=== PATIENT | female | born 1930 | race Caucasian/White ===

== ENCOUNTER 2017-08-06 02:20 | Inpatient (IN) | payer OTHER, MEDICARE ==
[2017-08-06] VITALS (12 sets, daily range): BP systolic 116–137; BP diastolic 62–82; PULSE 74–130; RESP 15–26; TEMP 97.5–98.1; O2SAT 95–99
--- NOTE | 2017-08-06 03:23 | HHI.HP ---
[facility] Service Critical Care Medicine Primary Care Physician Unknown Admission Diagnosis Diagnosis: (1) Fall Diagnosis: Principal (2) Intraparenchymal hemorrhage of brain Diagnosis: Principal (3) Eyebrow laceration Diagnosis: Secondary Travel History International Travel<30 Days: No Contact w/Intl Traveler <30 Da: No Traveled to Known Affected Are: No History of Present Illness 87-year-old female who states that she has no significant past medical history was transferred from [facility] due to intracerebral hemorrhage. She states that she slipped and landed with her face on the floor. She denies loss of consciousness. She denies reported seizure activity. She denies headache, nausea, vomiting. She is not on any anticoagulants or antiplatelets. Denies h/o HTN. She has right periorbital ecchymosis and a laceration above her right eye and has undergone suture repair at [facility]. CT brain at [facility] 08/05 17: 56 demonstrates intracerebral hemorrhage at the high right parietal region, near midline. There is no intraventricular hemorrhage. She had a CT C-spine that was negative. 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 Dr. Manning discussed with Dr. Ambriz who recommended repeat CT brain this morning. Review of Systems ROS Limitations: Clinical Condition Constitutional: DENIES: Fever, Chills Neurologic: DENIES: Headache Past Family Social History Allergies: Coded Allergies: No Known Allergies (Unverified , 08/06/17) Past Medical History Patient denies significant past medical history. Past Surgical History Patient denies prior surgery Reported Medications States she is not on any medication regularly Family History Mother at age 23 from "hemorrhage of the heart" Father lived a long life. Social History Her grandmother raised her. She states her daughter lives in the [facility] but stays with her during weekdays. Lifetime non-smoker Drinks 1-2 vodka and water beverages per day No illicit drug use She has a dog Physical Exam Physical Exam Pulse 112, sinus tach on the monitor blood pressure 116/65 sats 94-95% on room air GENERAL: Well-nourished, well-developed patient who is alert and interactive. Asking when she will be able to go home. HEAD: Normocephalic. EYES/SKIN: Right periorbital ecchymosis. Laceration overlying right eyebrow which has undergone suture repair [place].Pupils equal and round, 3 mm and reactive bilaterally. EOM are full with no evidence of entrapment. No scleral icterus. No injection or drainage. ENT: No nasal bleeding or discharge. Mucous membranes pink and moist. No septal hematoma. NECK: Trachea midline. No JVD. CARDIOVASCULAR: Tachycardic, regular, sinus tach on the monitor.. No murmurs rubs or gallops. RESPIRATORY: No accessory muscle use. Clear to auscultation. Breath sounds equal bilaterally. On room air GASTROINTESTINAL: Abdomen soft, non-tender, nondistended. Bowel sounds present. MUSCULOSKELETAL: Extremities without clubbing, cyanosis, or edema. There is a bony deformity of her left shoulder. She has normal range of motion there does not appear to have any point tenderness. She is uncertain of the chronicity of this but inquires whether it may have been related to the fall. NEUROLOGICAL: Awake and alert. Oriented to self, not to year or place. President "Obama". No obvious cranial nerve deficits. No facial droop. Normal tongue protrusion. Sensation intact. 5 out of 5 strength in all extremities. Normal speech. Laboratory Laboratory Tests Test 08/06/17 02:45 Caprini VTE Risk Assessment Caprini VTE Risk Assessment: Mod/High Risk (score >= 2) VTE Pharm Contraindication: Intracranial lesions (Intracerebral hemorrhage) Caprini Risk Assessment Model Point Value = 1 Point Value = 2 Point Value = 3 Point Value = 5 Age 41-60 Minor surgery BMI > 25 kg/m2 Swollen legs Varicose veins or History of unexplained or recurrent spontaneous Oral contraceptives or hormone replacement Sepsis (< 1 month) Serious lung disease, including pneumonia (< 1 month) Abnormal pulmonary function Acute myocardial infarction Congestive heart failure (< 1 month) History of inflammatory bowel disease Medical patient at bed rest Age 61-74 Arthroscopic surgery Major open surgery (> 45 min) Laparoscopic surgery (> 45 min) Malignancy Confined to bed (> 72 hours) Immobilizing plaster cast Central venous access Age >= 75 History of VTE Family history of VTE Factor V Leiden Prothrombin [id number] Lupus anticoagulant Anticardiolipin antibodies Elevated serum homocysteine Heparin-induced thrombocytopenia Other congenital or acquired thrombophilia Stroke (< 1 month) Elective arthroplasty Hip, pelvis, or leg fracture Acute spinal cord injury (< 1 month) Prophylaxis Regimen Total Risk Factor Score Risk Level Prophylaxis Regimen 0-1 Low Early ambulation 2 Moderate Order ONE of the following: *Sequential Compression Device (SCD) *Heparin 5000 units SQ BID 3-4 Higher Order ONE of the following medications: *Heparin 5000 units SQ TID *Enoxaparin/Lovenox 40 mg SQ daily (WT < 150 kg, CrCl > 30 mL/min) *Enoxaparin/Lovenox 30 mg SQ daily (WT < 150 kg, CrCl > 10-29 mL/min) *Enoxaparin/Lovenox 30 mg SQ BID (WT < 150 kg, CrCl > 30 mL/min) AND/OR *Sequential Compression Device (SCD) 5 or more Highest Order ONE of the following medications: *Heparin 5000 units SQ TID (Preferred with Epidurals) *Enoxaparin/Lovenox 40 mg SQ daily (WT < 150 kg, CrCl > 30 mL/min) *Enoxaparin/Lovenox 30 mg SQ daily (WT < 150 kg, CrCl > 10-29 mL/min) *Enoxaparin/Lovenox 30 mg SQ BID (WT < 150 kg, CrCl > 30 mL/min) AND *Sequential Compression Device (SCD) Assessment and Plan Problem List: (1) Fall ICD Code: W19.XXXA - Unspecified fall, initial encounter (2) Intraparenchymal hemorrhage of brain ICD Code: I61.9 - Nontraumatic intracerebral hemorrhage, unspecified (3) Eyebrow laceration ICD Code: S01.119A - Laceration without foreign body of unspecified eyelid and periocular area, initial encounter (4) Deformity of left shoulder joint ICD Code: M21.922 - Unspecified acquired deformity of left upper arm Status: Chronic Assessment and Plan NEURO: Fall Parietal intraparenchymal hemorrhage Neuro[facility] in [facility] Monitor vital signs, antihypertensives to maintain systolic blood pressure less than 160. Avoid hypoxemia, hypotension, hyponatremia. Repeat CT brain this morning CT Cspine outside hospital negative. Consult neurosurgery Tylenol as needed for headache Laceration R eyebrow -status post suture repair 08/05 at outside hospital. Sutures should be removed in 3-5 days per [facility]: L shoulder deformity May be chronic but patient unsure. No imaging of shoulder appears hospital. Will obtain x-rays left shoulder. RESP: Incentive spirometry every hour awake CV: Monitor hemodynamics. Hydralazine/labetalol as needed for systolic blood pressure greater than 160. GI: N.p.o. currently. Bedside swallow evaluation and advance diet as appropriate FEN/RENAL: Voiding ID: Afebrile. HEME: Check CBC ENDO: Check BMP PROPH: SCDs for DVT prophylaxis. Avoid pharmacologic DVT prophylaxis due to intracerebral hemorrhage. Protonix for stress ulcer prophylaxis ACCESS: Peripheral IV providing adequate access at this time Patient is confused enough now that she is not able to answer questions regarding Code status. I attempted to call the next of kin that is listed on paperwork from Victorina Forman ([facility]). [phone]. There was no answer. Left message. FULL CODE. Level 3 H&P. Problem Qualifiers (1) Eyebrow laceration: Qiana Deshpande MD August 06, 2017 03:23
[2017-08-06] MEDS ORDERED: LACTULOSE SYRUP 20 GM/30 ML CUP PO PRN (05:30)
[2017-08-06] MEDS ORDERED: SENNOSIDES 8.6 MG TAB PO PRN (05:30)
[2017-08-06] MEDS ORDERED: BISACODYL 10 MG SUPP RECTAL PRN (05:30)
[2017-08-06] MEDS ORDERED: ONDANSETRON HCL 4 MG/2 ML VIAL IV PUSH PRN (05:30)
[2017-08-06] MEDS ORDERED: RESP: ALBUTEROL 2.5 MG/3 ML NEB (PRN) INH (05:30)
[2017-08-06] MEDS ORDERED: NURSING INFORMATION XX SCH (05:30)
[2017-08-06] MEDS ORDERED: CHLORHEXIDINE GLUCONATE 2 % 1 PACK (2 CLOTHS) TOP PRN (05:30)
[2017-08-06] MEDS ORDERED: SODIUM CHLORIDE 0.9% FLUSH 10 ML FLUSH IV FLUSH PRN (05:30)
[2017-08-06] MEDS ORDERED: MAGNESIUM HYDROXIDE SUSP 30 ML CUP PO PRN (05:30)
[2017-08-06] MEDS ORDERED: ACETAMINOPHEN 325 MG TAB PO PRN (05:30)
[2017-08-06] MEDS ORDERED: POTASSIUM PHOSPHATE MONOBASIC 500 MG TAB PO/TUBE PRN (05:45)
[2017-08-06] MEDS ORDERED: MAGNESIUM SULFATE INJ 2 GM in SODIUM CHLORIDE 0.9% INJ 96 ML IV PRN (05:45)
[2017-08-06] MEDS ORDERED: POTASSIUM CHLOR 40 MEQ PREMIX 100 ML IV PRN ×2 (05:45)
[2017-08-06] MEDS ORDERED: POTASSIUM PHOSPHATE MONOBASIC 500 MG TAB PO PRN (05:45)
[2017-08-06] MEDS ORDERED: POTASSIUM CHLORIDE 25 MEQ EFFERVESCENT TAB PO PRN (05:45)
[2017-08-06] MEDS ORDERED: POTASSIUM CHLOR 20 MEQ PREMIX 100 ML IV PRN ×2 (05:45)
[2017-08-06] MEDS ORDERED: MAGNESIUM OXIDE 400 MG TAB PO PRN (05:45)
[2017-08-06] MEDS ORDERED: MAGNESIUM SULFATE INJ 4 GM in SODIUM CHLORIDE 0.9% INJ 92 ML IV PRN (05:45)
[2017-08-06] MEDS ORDERED: POTASSIUM PHOSPHATE INJ 30 MMOL in SODIUM CHLOR 0.9% 250 ML INJ 250 ML IV PRN (05:45)
[2017-08-06] MEDS ORDERED: SODIUM PHOSPHATE INJ 30 MMOL in SODIUM CHLOR 0.9% 250 ML INJ 240 ML IV PRN (05:45)
--- NOTE | 2017-08-06 06:49 | RADRPT ---
EXAM DATE/TIME: 08/06/2017 06:27 [facility] COMPARISON: No previous studies available for comparison. INDICATIONS : Shortness of breath. MEDICAL HISTORY : None. SURGICAL HISTORY : None. ENCOUNTER: Initial ACUITY: 1 day PAIN SCORE: 0/10 LOCATION: Bilateral chest FINDINGS: There is a skinfold overlying the right upper chest. I do not believe there is a pneumothorax. Could be confirmed with a fully upright film in expiration. Lungs are grossly clear. No significant effusio n suspected. Cardiac contours are satisfactory for technique. CONCLUSION: No acute disease Alvin Ames MD on August 06, 2017 at 6:45 Board Certified Radiologist. This report was verified electronically.
[2017-08-06] MEDS: SODIUM CHLOR 0.9% 1000 ML INJ 1,000 ML IV SCH ×2 (07:30→19:47)
--- NOTE | 2017-08-06 08:16 | RADRPT ---
EXAM DATE/TIME: 08/06/2017 07:47 [facility] COMPARISON: No previous studies available for comparison. INDICATIONS : Trauma, fall yesterday. RADIATION DOSE: 35.11 CTDIvol (mGy) MEDICAL HISTORY : None SURGICAL HISTORY : None. ENCOUNTER: Initial ACUITY: 1 day PAIN SCALE: 3/10 LOCATION: Bilateral head TECHNIQUE: Multiple contiguous axial images were obtained of the head. Using automated exposure control and adj ustment of the mA and/or kV according to patient size, radiation dose was kept as low as reasonably a chievable to obtain optimal diagnostic quality images. DICOM format image data is available electro nically for review and comparison. FINDINGS: CEREBRUM: There is a generalized atrophy. Ventricles are normal in size. There is mild periventricular white ma tter low attenuation. A small amount of high density blood products a l the sulci in the right fronta l parietal high convexity adjacent to the falx cerebri. There is also a small amount of blood product s in the anterior right sylvian fissure and anterior right temporal lobe. No midline shift, mass les ion, or acute infarction. No extra-axial fluid collections are seen. POSTERIOR FOSSA: The cerebellum and brainstem demonstrate no acute finding. The 4th ventricle is midline. The cerebe llopontine angle is unremarkable. EXTRACRANIAL: Visualized sinuses are clear. SKULL: The calvaria is intact. No evidence of skull fracture. CONCLUSION: 1. There are acute blood products layering along the sulci in the medial right frontal and parietal l obes in the high convexity. Also, a small amount of blood products are present at the anterior right sylvian fissure and anterior right temporal lobe. No midline shift or herniation is present. 2. Chronic findings include generalized atrophy and mild chronic periventricular white matter change. Alvin Parker MD on August 06, 2017 at 8:10 Board Certified Radiologist. This report was verified electronically.
--- NOTE | 2017-08-06 08:24 | RADRPT ---
EXAM DATE/TIME: 08/06/2017 07:58 [facility] COMPARISON: No previous studies available for comparison. INDICATIONS : Left Shoulder pain MEDICAL HISTORY : None. SURGICAL HISTORY : None. ENCOUNTER: Initial ACUITY: 1 day PAIN SCORE: 7/10 LOCATION: Left shoulder FINDINGS: 4 views of the left shoulder demonstrate no fracture or dislocation. 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 Mineralization is present in the region of the distal rotator cuff tendons adjacent to the greater tuberosity. No soft tissue abnormality or radiopaque foreign ketty dy is identified. Visualized left chest demonstrates no acute finding. There is calcification of the aorta. CONCLUSION: 1. No acute left shoulder abnormality is identified. 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 2. Mineralization in the region of the distal rotator cuff tendon suggests calcific tendinosis. Alvin Parker MD on August 06, 2017 at 8:19 Board Certified Radiologist. This report was verified electronically.
[2017-08-06] MEDS: SODIUM CHLORIDE 0.9% FLUSH 10 ML FLUSH IV FLUSH SCH ×2 (09:00→21:00)
[2017-08-06] MEDS: DOCUSATE SODIUM 50 MG/SENNA 8.6 MG TAB PO SCH ×2 (09:22→21:00)
[2017-08-06] MEDS: PANTOPRAZOLE SOD 40 MG DELAYED RELEASE TAB PO SCH (09:22)
--- NOTE | 2017-08-06 11:28 | PD.CONS ---
History of Present Illness Service Neurosurgery Consult Requested By Certified Surgical Technician Reason for Consult Traumatic brain injury Primary Care Physician Unknown Diagnoses: History of Present Illness 87-year-old female who was transferred from [facility] for cerebral contusions after a trip and fall at home. No loss of consciousness noted and she denies feeling lightheaded or dizzy either prior to or after the fall. She relates no complaints and denies headache, nausea vomiting, neck or back pain, any numbness or paresthesias in the upper lower extremities. Daughter is here with her and relates that she has a history of dementia and is otherwise healthy and other than some vitamins does not take any medication. She also has glaucoma with poor vision. The fall occurred yesterday and she was transferred to [facility] fax this morning. CT scan of the head was repeated and reveals right posterior frontoparietal parasagittal contusions along with the right temporal polar area contusion near the sylvian fissure laterally. There is generalized cerebral atrophy with no mass-effect or midline shift noted. Review of Systems Constitutional: DENIES: Diaphoretic episodes, Fatigue, Fever, Weight gain, Weight loss, Chills, Dizziness, Change in appetite, Night Sweats Endocrine: DENIES: Abnorml menstrual pattern, Heat/cold intolerance, Polydipsia , Polyuria, Polyphagia Eyes: COMPLAINS OF: Vision loss, DENIES: Blurred vision, Diplopia, Eye inflammation, Eye pain, Photosensitivity, Double Vision Ears, nose, mouth, throat: DENIES: Tinnitus, Hearing loss, Vertigo, Nasal discharge, Oral lesions, Throat pain, Hoarseness, Ear Pain, Running Nose, Epistaxis, Sinus Pain, Toothache, Odynophagia Respiratory: DENIES: Apneas, Cough, Snoring, Wheezing, Hemoptysis, Sputum production, Shortness of breath Cardiovascular: DENIES: Chest pain, Palpitations, Syncope, Dyspnea on Exertion , PND, Lower Extremity Edema, Orthopnea, Claudication Gastrointestinal: DENIES: Abdominal pain, Black stools, Bloody stools, Constipation, Diarrhea, Nausea, Vomiting, Difficulty Swallowing, Anorexia Genitourinary: DENIES: Abnormal vaginal bleeding, Dysmenorrhea, Dyspareunia, Sexual dysfunction, Urinary frequency, Urinary incontinence, Urgency, Hematuria , Dysuria, Nocturia, Vaginal discharge Musculoskeletal: DENIES: Joint pain, Muscle aches, Stiffness, Joint Swelling, Back pain, Neck pain Integumentary: DENIES: Abnormal pigmentation, Pruritus, Rash, Nail changes, Breast masses, Breast skin changes, Nipple discharge Hematologic/lymphatic: COMPLAINS OF: Bruising, DENIES: Lymphadenopathy Immunologic/allergic: DENIES: Eczema, Urticaria Neurologic: DENIES: Abnormal gait, Headache, Localized weakness, Paresthesias, Seizures, Speech Problems, Tremor, Poor Balance Psychiatric: DENIES: Anxiety, Confusion, Mood changes, Depression, Hallucinations, Agitation, Suicidal Ideation, Homicidal Ideation, Delusions Except as stated in HPI: all other systems reviewed are Neg Past Family Social History Allergies: Coded Allergies: No Known Allergies (Unverified , 08/06/17) Past Medical History Dementia and glaucoma with poor vision Reported Medications Vitamin E Active Ordered Medications Current Medications Medications (Trade) Dose Ordered Sig/Christel Route PRN Reason Start Time Stop Time Status Last Admin Dose Admin Sodium Chloride 1,000 ml @ 70 mls/hr [id number] IV 08/06/17 05:29 08/06/17 07:30 Sodium Chloride (NS Flush) 2 ml UNSCH PRN IV FLUSH FLUSH AFTER USING IV ACCESS 08/06/17 05:30 Sodium Chloride (NS Flush) 2 ml BID IV FLUSH 08/06/17 09:00 Acetaminophen (Tylenol) 650 mg Q6H PRN PO PAIN 1-10 AND/OR FEVER >101F 08/06/17 05:30 Pantoprazole Sodium (Protonix) 40 mg DAILY PO 08/06/17 09:00 08/06/17 09:22 Ondansetron HCl (Zofran Inj) 4 mg Q6H PRN IV PUSH NAUSEA OR VOMITING 08/06/17 05:30 Albuterol Sulfate (Albuterol Neb) 2.5 mg Q2HR NEB PRN INH SOB/WHEEZING 08/06/17 05:30 Miscellaneous Information ([facility] Nursing Information) 1 [id number] XX 08/06/17 05:30 08/06/17 07:30 Chlorhexidine Gluconate (Chlorhexidine 2% Cloth) 3 pack Taper DAILY@04 TOP 08/07/17 04:00 08/03/18 03:59 Chlorhexidine Gluconate (Chlorhexidine 2% Cloth) 3 pack UNSCH PRN TOP HYGIENIC CARE 08/06/17 05:30 Senna/Docusate Sodium (Julita-Colace) 1 tab BID PO 08/06/17 09:00 08/06/17 09:22 Magnesium Hydroxide (Milk Of Magnesia Liq) 30 ml Q12H PRN PO Mild constipation 08/06/17 05:30 Sennosides (Senokot) 17.2 mg Q12H PRN PO Moderate constipation 08/06/17 05:30 Bisacodyl (Dulcolax Supp) 10 mg DAILY PRN RECTAL SEVERE CONSITIPATION 08/06/17 05:30 Lactulose (Lactulose Liq) 30 ml DAILY PRN PO SEVERE CONSITIPATION 08/06/17 05:30 Potassium Chloride 100 ml @ 50 mls/hr Q2H PRN IV For Potassium 2.8 - 3.2 mEq/L 08/06/17 05:45 Potassium Chloride 100 ml @ 50 mls/hr Q2H PRN IV For Potassium 2.8 - 3.2 mEq/L 08/06/17 05:45 Potassium Bicarb/ Potassium Chloride (K-Lyte Cl Eff) 50 meq UNSCH PRN PO For Potassium 3.3 - 3.5 mEq/L 08/06/17 05:45 Potassium Chloride 100 ml @ 25 mls/hr UNSCH PRN IV For Potassium 3.3 - 3.5 mEq/L 08/06/17 05:45 Potassium Chloride 100 ml @ 50 mls/hr Q2H PRN IV For Potassium 3.3 - 3.5 mEq/L 08/06/17 05:45 Magnesium Sulfate 4 gm/Sodium Chloride 100 ml @ 50 mls/hr UNSCH PRN IV For Magnesium 0.9 - 1.1 mg/dL 08/06/17 05:45 Magnesium Oxide (Mag-Ox) 800 mg UNSCH PRN PO For Magnesium 1.2 - 1.6 mg/dL 08/06/17 05:45 Magnesium Sulfate 2 gm/Sodium Chloride 100 ml @ 50 mls/hr UNSCH PRN IV For Magnesium 1.2 - 1.6 mg/dL 08/06/17 05:45 Potassium Phosphate (K-Phos) 2,000 mg Q4H PRN PO For Phosphorus < 2.5 mg/dL 08/06/17 05:45 Sodium Phosphate 30 mmol/Sodium Chloride 250 ml @ 42 mls/hr UNSCH PRN IV For Phosphorus < 2.5 mg/dL 08/06/17 05:45 Potassium Phosphate (K-Phos) 2,000 mg UNSCH PRN PO/TUBE SEE LABEL COMMENTS 08/06/17 05:45 Potassium Phosphate 30 mmol/ Sodium Chloride 260 ml @ 42 mls/hr UNSCH PRN IV SEE LABEL COMMENTS 08/06/17 05:45 Family History Unremarkable Social History She resides at home with her daughter. She used to drink heavily although currently has cut back to couple glasses of wine a day. Former smoker. Physical Exam Vital Signs Vital Signs Date Time Temp Pulse Resp B/P (MAP) Pulse Ox O2 Delivery O2 Flow Rate FiO2 08/06/17 10:00 100 08/06/17 08:00 110 08/06/17 08:00 98.1 110 25 133/63 (86) 98 08/06/17 07:00 108 08/06/17 07:00 91 Room Air 08/06/17 06:00 97.6 118 26 119/82 (94) 98 08/06/17 06:00 118 08/06/17 04:00 116 08/06/17 04:00 97.6 74 15 116/65 (82) 99 Physical Exam GENERAL: This is a well-nourished, well-developed elderly patient, in no apparent distress. SKIN: No rashes. Cool and dry. HEAD: Right eyebrow laceration which has been sutured. The orbital ecchymosis along with the facial trauma and ecchymosis. EYES: Pupils equal round and reactive. Extraocular motions intact. No scleral icterus. No injection or drainage. ENT: Nose without bleeding, purulent drainage or septal hematoma. Throat without erythema, tonsillar hypertrophy or exudate. Uvula midline. Airway patent. NECK: Trachea midline. No JVD or lymphadenopathy. Supple, nontender, no meningeal signs. CARDIOVASCULAR: Regular rate and rhythm without murmurs, gallops, or rubs. RESPIRATORY: Clear to auscultation. Breath sounds equal bilaterally. No wheezes , rales, or rhonchi. GASTROINTESTINAL: Abdomen soft, non-tender, nondistended. No hepato-splenomegaly , or palpable masses. No guarding. MUSCULOSKELETAL: Extremities without clubbing, cyanosis, or edema. No joint tenderness, effusion, or edema noted. No calf tenderness. Negative Homans sign bilaterally. NEUROLOGICAL: Awake and alert although pleasantly confused. Cranial nerves II through XII intact. Motor and sensory grossly within normal limits. Normal speech. Laboratory Laboratory Tests Test 08/06/17 02:45 Nasal Screen MRSA (PCR) MRSA NOT DETECTED Imaging Last Impressions Head CT 08/06/17 0500 Signed Impressions: Service Date/Time: Sunday, August 06, 2017 07:47 - CONCLUSION: 1. There are acute blood products layering along the sulci in the medial right frontal and parietal lobes in the high convexity. Also, a small amount of blood products are present at the anterior right sylvian fissure and anterior right temporal lobe. No midline shift or herniation is present. 2. Chronic findings include generalized atrophy and mild chronic periventricular white matter change. Alvin Parker MD Shoulder X-Ray 08/06/17 0000 Signed Impressions: Service Date/Time: Sunday, August 06, 2017 07:58 - CONCLUSION: 1. No acute left shoulder abnormality is identified. 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 2. Mineralization in the region of the distal rotator cuff tendon suggests calcific tendinosis. Alvin Parker MD Chest X-Ray 08/06/17 0000 Signed Impressions: Service Date/Time: Sunday, August 06, 2017 06:27 - CONCLUSION: No acute disease Alvin Ames MD Assessment and Plan Assessment and Plan 87-year-old female with a medial right posterior frontal parietal lobe contusions along with the temporal polar area contusion which is stable on follow-up imaging studies consistent with a traumatic injury after the fall. She has a history of dementia which is at baseline according to her daughter. Continue with observation and increase activity status and diet as tolerated. Recommend mechanical DVT prophylaxis. If her clinical condition remains stable over the next 48 hours then she likely could be discharged. Discussed with the daughter and questions answered. William Ambriz MD August 06, 2017 11:28
[2017-08-06 11:41] LABS: HEMATOCRIT 32.5 % (35.0-46.0); HEMOGLOBIN 10.9 GM/DL (11.6-15.3); MEAN CELL VOLUME 99.7 FL (80.0-100.0); MEAN CORPUSCULAR HEMOGLOBIN 33.5 PG (27.0-34.0); MEAN CORPUSCULAR HGB CONC 33.6 % (32.0-36.0); MEAN PLATELET VOLUME 7.4 FL (7.0-11.0); PLATELET COUNT 194 TH/MM3 (150-450); RED BLOOD COUNT 3.26 MIL/MM3 (4.00-5.30); RED CELL DISTRIBUTION WIDTH 15.1 % (11.6-17.2); WHITE BLOOD COUNT 5.1 TH/MM3 (4.0-11.0)
[2017-08-06 11:57] LABS: BICARBONATE 16.2 MEQ/L (21.0-32.0); CALCIUM 8.8 MG/DL (8.5-10.1); CREATININE 1.27 MG/DL (0.50-1.00); PHOSPHORUS 4.4 MG/DL (2.5-4.9)
--- NOTE | 2017-08-06 13:04 | EKG ---
Date Performed: 08/06/2017 Time Performed: 10:12:49 PTAGE: 87 years EKG: ATRIAL FLUTTER/TACHYCARDIA WITH RAPID VENTRICULAR RESPONSE LOW QRS VOLTAGE IN PRECORDIAL LE ADS INFERIOR MYOCARDIAL INFARCTION , PROBABLY OLD ABNORMAL ECG NO PREVIOUS TRACING Sinus tachycardia is not excluded. Unusual P-wave morphology does spe ak more towards an atrial dysrhythmia. DOCTOR: Duarte Chacon Interpretating Date/Time 08/06/2017 13:02:38
[2017-08-06] MEDS: LORazepam 2 MG/ML VIAL IV PUSH PRN ×2 (16:55→21:32)
[2017-08-06] MEDS: MULTIVITAMIN INJ 10 ML, THIAMINE INJ 100 MG, FOLIC ACID INJ 1 MG in DEXT 5%-NACL 0.9% 5... IV SCH (17:20)
[2017-08-07] VITALS (11 sets, daily range): BP systolic 128–145; BP diastolic 63–96; PULSE 69–122; RESP 15–22; TEMP 97.5–98.6; O2SAT 94–100
[2017-08-07] MEDS: CHLORHEXIDINE GLUCONATE 2 % 1 PACK (2 CLOTHS) TOP SCH (04:00)
[2017-08-07 06:09] LABS: AUTOMATED NEUTROPHIL # 3.1 TH/MM3 (1.8-7.7); BASOPHIL % 0.7 % (0.0-2.0); EOSINOPHIL # 0.5 TH/MM3 (0-0.4); EOSINOPHIL % 9.6 % (0.0-4.0); HEMATOCRIT 29.7 % (35.0-46.0); LYMPH % 20.4 % (9.0-44.0); LYMPHOCYTE # 1.1 TH/MM3 (1.0-4.8); MEAN CELL VOLUME 98.8 FL (80.0-100.0); MEAN CORPUSCULAR HEMOGLOBIN 33.4 PG (27.0-34.0); MEAN CORPUSCULAR HGB CONC 33.8 % (32.0-36.0); MEAN PLATELET VOLUME 7.4 FL (7.0-11.0); MONO % 12.2 % (0.0-8.0); MONOCYTE # 0.7 TH/MM3 (0-0.9); NEUT % 57.1 % (16.0-70.0); PLATELET COUNT 217 TH/MM3 (150-450); RED CELL DISTRIBUTION WIDTH 15.4 % (11.6-17.2); WHITE BLOOD COUNT 5.5 TH/MM3 (4.0-11.0)
[2017-08-07 06:28] LABS: BICARBONATE 21.5 MEQ/L (21.0-32.0); CALCIUM 8.2 MG/DL (8.5-10.1); CREATININE 1.15 MG/DL (0.50-1.00)
[2017-08-07] MEDS: DOCUSATE SODIUM 50 MG/SENNA 8.6 MG TAB PO SCH ×2 (09:53→23:10)
[2017-08-07] MEDS: SODIUM CHLORIDE 0.9% FLUSH 10 ML FLUSH IV FLUSH SCH ×2 (09:53→23:10)
[2017-08-07] MEDS: PANTOPRAZOLE SOD 40 MG DELAYED RELEASE TAB PO SCH (09:53)
[2017-08-07] MEDS: SODIUM CHLOR 0.9% 1000 ML INJ 1,000 ML IV SCH (10:05)
--- NOTE | 2017-08-07 10:39 | HHI.NSPN ---
(Chuck Giordano) History Chief Complaint: No complains. S/p fall with cerebral contusions. (Chuck Giordano) Interval History 87-year-old female who was transferred from [facility] for cerebral contusions after a trip and fall at home. No loss of consciousness noted and she denies feeling lightheaded or dizzy either prior to or after the fall. She relates no complaints and denies headache, nausea vomiting, neck or back pain, any numbness or paresthesias in the upper lower extremities. Daughter is here with her and relates that she has a history of dementia and is otherwise healthy and other than some vitamins does not take any medication. She also has glaucoma with poor vision. The fall occurred yesterday and she was [facility] fax this morning. CT scan of the head was repeated and reveals right posterior frontoparietal parasagittal contusions along with the right temporal polar area contusion near the sylvian fissure laterally. There is generalized cerebral atrophy with no mass-effect or midline shift noted. 08/07/17: Pt awake and alert. No headache, nausea, or vomiting. Follows commands well. speech clear and appropriate. (Chuck Giordano) Review of Systems General: Negative for: fever, chills, insomnia Respiratory: Negative for: shortness of breath, cough, sputum Cardiovascular: Negative for: chest pain Gastrointestinal: Negative for: nausea, vomitting, diarrhea, constipation ( Chuck Giordano) Exam Results Vital Signs Date Time Temp Pulse Resp B/P (MAP) Pulse Ox O2 Delivery O2 Flow Rate FiO2 08/07/17 07:00 97 Room Air 08/07/17 06:00 72 08/07/17 04:00 98.1 15 133/63 (86) 08/06/17 20:15 3.00 (Chuck Giordano) Physical Examination General: Pt awakens to voice. Eyes: Pupils equal. Sclera anicteric. Resp: CTA bilaterally. Heart: Mild tachycardia, no murmurs. Abd: Soft positive bs. Skin: She has ecchymosis right chin and right periorbital area with a sutured laceration above right eyebrow. Muscle: Moves all 4 extremities with good strength. Neuro: Pt awake and alert. Pupils equal. Face symmetric. Follows commands well. (Chuck Giordano) Lab, Micro, Other Results Last Impressions Head CT 08/06/17 0500 Signed Impressions: Service Date/Time: Sunday, August 06, 2017 07:47 - CONCLUSION: 1. There are acute blood products layering along the sulci in the medial right frontal and parietal lobes in the high convexity. Also, a small amount of blood products are present at the anterior right sylvian fissure and anterior right temporal lobe. No midline shift or herniation is present. 2. Chronic findings include generalized atrophy and mild chronic periventricular white matter change. Alvin Parker MD Shoulder X-Ray 08/06/17 0000 Signed Impressions: Service Date/Time: Sunday, August 06, 2017 07:58 - CONCLUSION: 1. No acute left shoulder abnormality is identified. 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 2. Mineralization in the region of the distal rotator cuff tendon suggests calcific tendinosis. Alvin Parker MD Chest X-Ray 08/06/17 0000 Signed Impressions: Service Date/Time: Sunday, August 06, 2017 06:27 - CONCLUSION: No acute disease Alvin Ames MD Laboratory Tests Test 08/06/17 11:16 08/07/17 04:22 White Blood Count 5.1 TH/MM3 5.5 TH/MM3 Red Blood Count 3.26 MIL/MM3 3.00 MIL/MM3 Hemoglobin 10.9 GM/DL 10.0 GM/DL Hematocrit 32.5 % 29.7 % Mean Corpuscular Volume 99.7 FL 98.8 FL Mean Corpuscular Hemoglobin 33.5 PG 33.4 PG Mean Corpuscular Hemoglobin Concent 33.6 % 33.8 % Red Cell Distribution Width 15.1 % 15.4 % Platelet Count 194 TH/MM3 217 TH/MM3 Mean Platelet Volume 7.4 FL 7.4 FL Prothrombin Time 10.0 SEC Prothromb Time International Ratio 1.0 RATIO Blood Urea Nitrogen 27 MG/DL 26 MG/DL Creatinine 1.27 MG/DL 1.15 MG/DL Random Glucose 73 MG/DL 92 MG/DL Calcium Level 8.8 MG/DL 8.2 MG/DL Phosphorus Level 4.4 MG/DL Magnesium Level 2.0 MG/DL Sodium Level 138 MEQ/L 145 MEQ/L Potassium Level 4.7 MEQ/L 4.1 MEQ/L Chloride Level 110 MEQ/L 114 MEQ/L Carbon Dioxide Level 16.2 MEQ/L 21.5 MEQ/L Anion Gap 12 MEQ/L 10 MEQ/L Estimat Glomerular Filtration Rate 40 ML/MIN 44 ML/MIN Neutrophils (%) (Auto) 57.1 % Lymphocytes (%) (Auto) 20.4 % Monocytes (%) (Auto) 12.2 % Eosinophils (%) (Auto) 9.6 % Basophils (%) (Auto) 0.7 % Neutrophils # (Auto) 3.1 TH/MM3 Lymphocytes # (Auto) 1.1 TH/MM3 Monocytes # (Auto) 0.7 TH/MM3 Eosinophils # (Auto) 0.5 TH/MM3 Basophils # (Auto) 0.0 TH/MM3 CBC Comment DIFF FINAL Differential Comment (Chuck Giordano) Medical Decision Making Impression and Plan A: 87-year-old female with a medial right posterior frontal parietal lobe contusions along with the temporal polar area contusion which is stable on follow-up imaging studies consistent with a traumatic injury after the fall. She has a history of dementia which is at baseline according to her daughter. P: Continue with neuro checks Increase activity with PT Continue with SCDs. Possibly d/c home tomorrow is stable oob. (Chuck Giordano) Attending Statement The exam, history, and the medical decision-making described in the above note were completed with the assistance of the mid-level provider. I reviewed and agree with the findings presented. I attest that I had a [id number] encounter with the patient on the same day, and personally performed and documented my assessment and findings in the medical record. Denies any complaints. Got out of bed with physical therapy. Stable neurologic examination. Transfer to floor. Discussed with nursing staff. (William Ambriz MD) Chuck Giordano August 07, 2017 10:39 William Ambriz MD August 07, 2017 16:15
--- NOTE | 2017-08-07 12:10 | HHI.CCPN ---
Subjective Remarks/Hospital Course 87-year-old female who states that she has no significant past medical history was transferred from [facility] due to intracerebral hemorrhage. She states that she slipped and landed with her face on the floor. She denies loss of consciousness. She denies reported seizure activity. She denies headache, nausea, vomiting. She is not on any anticoagulants or antiplatelets. Denies h/o HTN. She has right periorbital ecchymosis and a laceration above her right eye and has undergone suture repair at [place]. CT brain at [place] 08/05 17: 56 demonstrates intracerebral hemorrhage at the high right parietal region, near midline. There is no intraventricular hemorrhage. She had a CT C-spine that was negative. She was transferred to [facility]. Dr. Manning discussed with Dr. Ambriz who recommended repeat CT brain this morning. 08/07: Patient lying in bed appears comfortable. Tachycardic in 120s. No focal deficits. Oriented to person and somewhat to place. Received Ativan overnight for slight withdrawal symptoms. Drinks multiple shots of vodka daily Objective Vital Signs Date Time Temp Pulse Resp B/P (MAP) Pulse Ox O2 Delivery O2 Flow Rate FiO2 08/07/17 10:00 77 08/07/17 08:00 97.5 18 136/66 (89) 99 08/07/17 07:00 Room Air 08/06/17 20:15 3.00 Result Diagram: 08/07/17 0422 08/07/17 0422 Objective Remarks Pulse 120, sinus tach on the monitor GENERAL: Well-nourished, well-developed patient who is alert and interactive. HEAD: Normocephalic. EYES/SKIN: Right periorbital ecchymosis. Laceration overlying right eyebrow which has undergone repair.Pupils equal and round, 3 mm and reactive bilaterally. EOM are full with no evidence of entrapment. ENT: No nasal bleeding or discharge. Mucous membranes pink and moist. No septal hematoma. NECK: Trachea midline. No JVD. CARDIOVASCULAR: Tachycardic, regular, sinus tach on the monitor. No murmurs rubs or gallops. RESPIRATORY: No accessory muscle use. Clear to auscultation. Breath sounds equal bilaterally. On room air GASTROINTESTINAL: Abdomen soft, non-tender, nondistended. Bowel sounds present. MUSCULOSKELETAL: Extremities without clubbing, cyanosis, or edema. There is a bony deformity of her left shoulder. She has normal range of motion there does not appear to have any point tenderness. NEUROLOGICAL: Awake and alert. Oriented to self, not to year or place. No obvious cranial nerve deficits. No facial droop. Normal tongue protrusion. Sensation intact. 5 out of 5 strength in all extremities. Normal speech. A/P Problem List: (1) Fall ICD Code: W19.XXXA - Unspecified fall, initial encounter (2) Intraparenchymal hemorrhage of brain ICD Code: I61.9 - Nontraumatic intracerebral hemorrhage, unspecified Assessment and Plan NEURO: Fall Parietal intraparenchymal hemorrhage Alcohol abuse Neurochecks in [facility] Monitor vital signs, antihypertensives to maintain systolic blood pressure less than 160. Avoid hypoxemia, hypotension, hyponatremia. Repeat CT brain reviewed with neurosurgery CT Cspine outside hospital negative. Neurosurgery Dr Ambriz Tylenol as needed for headache Laceration R eyebrow -status post suture repair 08/05 at outside hospital. Sutures should be removed in 3-5 days per Low-dose Ativan as needed for alcohol withdrawal MSK: L shoulder deformity May be chronic but patient unsure. No imaging of shoulder appears hospital. x- ray left shoulder shows no acute fracture RESP: Incentive spirometry every hour awake CV: Monitor hemodynamics. Hydralazine/labetalol as needed for systolic blood pressure greater than 160. GI: Bedside swallow evaluation and advance diet as appropriate FEN/RENAL: Voiding ID: Afebrile. HEME: F/u CBC ENDO: F/u BMP. Replace electrolytes as appropriate PROPH: SCDs for DVT prophylaxis. Avoid pharmacologic DVT prophylaxis due to intracerebral hemorrhage. Protonix for stress ulcer prophylaxis ACCESS: Peripheral IV providing adequate access at this time Updated family yesterday 08/06/17 Level 3. John Esquivel MD August 07, 2017 12:10
[2017-08-07] MEDS: MULTIVITAMIN INJ 10 ML, THIAMINE INJ 100 MG, FOLIC ACID INJ 1 MG in DEXT 5%-NACL 0.9% 5... IV SCH (16:33)
[2017-08-08] VITALS: BP 141/64; PULSE 82; RESP 18; TEMP 98.1; O2SAT 96
[2017-08-08 04:00] VITALS: BP 103/70; PULSE 100; RESP 20; TEMP 98; O2SAT 98
--- NOTE | 2017-08-08 06:15 | RADRPT ---
EXAM DATE/TIME: 08/08/2017 05:15 [place] COMPARISON: CHEST SINGLE AP, August 06, 2017, 6:27. INDICATIONS : Short of breath, respiratory disease MEDICAL HISTORY : None. SURGICAL HISTORY : None. ENCOUNTER: Subsequent ACUITY: 2 days PAIN SCORE: 0/10 LOCATION: Bilateral chest FINDINGS: A single view of the chest demonstrates the lungs to be symmetrically aerated without evidence of mas s, infiltrate or effusion. The cardiomediastinal contours are unremarkable. Atherosclerotic disease in the aortic knob. Osseous structures are intact. CONCLUSION: Normal examination. Jc Alfaro MD on August 08, 2017 at 6:14 Board Certified Radiologist. This report was verified electronically.
[2017-08-08 08:20] VITALS: BP 136/79; PULSE 116; RESP 18; TEMP 97.3; O2SAT 98
[2017-08-08] MEDS: DOCUSATE SODIUM 50 MG/SENNA 8.6 MG TAB PO SCH ×2 (08:59→20:57)
[2017-08-08] MEDS: PANTOPRAZOLE SOD 40 MG DELAYED RELEASE TAB PO SCH (08:59)
[2017-08-08] MEDS: SODIUM CHLORIDE 0.9% FLUSH 10 ML FLUSH IV FLUSH SCH ×2 (09:00→20:59)
[2017-08-08 09:10] LABS: AUTOMATED NEUTROPHIL # 3.2 TH/MM3 (1.8-7.7); BASOPHIL % 0.2 % (0.0-2.0); EOSINOPHIL # 0.3 TH/MM3 (0-0.4); EOSINOPHIL % 7.2 % (0.0-4.0); HEMOGLOBIN 10.1 GM/DL (11.6-15.3); LYMPH % 16.8 % (9.0-44.0); LYMPHOCYTE # 0.8 TH/MM3 (1.0-4.8); MEAN CELL VOLUME 98.2 FL (80.0-100.0); MEAN CORPUSCULAR HEMOGLOBIN 33.1 PG (27.0-34.0); MEAN CORPUSCULAR HGB CONC 33.7 % (32.0-36.0); MEAN PLATELET VOLUME 7.1 FL (7.0-11.0); MONO % 10.2 % (0.0-8.0); MONOCYTE # 0.5 TH/MM3 (0-0.9); NEUT % 65.6 % (16.0-70.0); PLATELET COUNT 247 TH/MM3 (150-450); RED BLOOD COUNT 3.05 MIL/MM3 (4.00-5.30); RED CELL DISTRIBUTION WIDTH 15.5 % (11.6-17.2); WHITE BLOOD COUNT 4.8 TH/MM3 (4.0-11.0)
[2017-08-08 09:40] LABS: ALBUMIN 2.5 GM/DL (3.4-5.0); AST (GOT) 16 U/L (15-37); BLOOD UREA NITROGEN 20 MG/DL (7-18); CALCIUM 8.7 MG/DL (8.5-10.1); CHLORIDE 113 MEQ/L (98-107); CREATININE 1.12 MG/DL (0.50-1.00); GLOMERULAR FILTRATION RATE 46 ML/MIN (>89); GLUCOSE,RANDOM 84 MG/DL (74-106); MAGNESIUM 1.7 MG/DL (1.5-2.5); SODIUM (NA) 144 MEQ/L (136-145)
[2017-08-08 09:41] LABS: ALT (GPT) 10 U/L (10-53)
[2017-08-08 09:44] LABS: ALKALINE PHOSPHATASE 74 U/L (45-117); TOTAL BILIRUBIN ADULT 0.3 MG/DL (0.2-1.0); TOTAL PROTEIN 5.9 GM/DL (6.4-8.2)
--- NOTE | 2017-08-08 09:44 | HHI.FF ---
Face to Face Verification Diagnosis: (1) Intraparenchymal hemorrhage of brain (2) Fall Physical Therapy Order: Evaluate and Treat Home Health Nursing Order: Medical education Signs/symptoms of disease process Medication education-adverse effect Nursing assessment with vital signs I have seen patient Daphne Hillman on 08/08/17. My clinical findings support the need for the requested home health care services because: Ltd mobility - disease progression I certify that my clinical findings support that this patient is homebound because: Unsteady gait/balance Neela Boateng MD August 08, 2017 09:44
--- NOTE | 2017-08-08 09:48 | HHI.PR ---
Subjective Remarks in no acute distress. resting comfortably with no pain. no headache , nausea or vomiting. Objective Vitals Vital Signs Date Time Temp Pulse Resp B/P (MAP) Pulse Ox O2 Delivery O2 Flow Rate FiO2 08/08/17 08:20 97.3 116 18 136/79 (98) 98 08/08/17 04:00 98.0 100 20 103/70 (81) 98 08/08/17 00:00 98.1 82 18 141/64 (89) 96 08/07/17 21:30 Room Air 08/07/17 20:00 97.6 117 18 145/67 (93) 94 08/07/17 18:00 120 08/07/17 16:00 120 08/07/17 16:00 98.6 120 22 128/96 (107) 100 08/07/17 14:00 82 08/07/17 12:00 75 08/07/17 12:00 98.0 75 17 137/73 (94) 99 08/07/17 10:00 77 I/O 08/07/17 08/07/17 08/07/17 08/08/17 08/08/17 08/08/17 07:00 15:00 23:00 07:00 15:00 23:00 Intake Total 200 ml 480 ml Balance 200 ml 480 ml Intake Oral 480 ml IV Total 200 ml # Voids 3 5 2 # Bowel Movements 0 Result Diagram: 08/08/17 0802 08/07/17 0422 Imaging Last Impressions Chest X-Ray 08/08/17 0600 Signed Impressions: Service Date/Time: Tuesday, August 08, 2017 05:15 - CONCLUSION: Normal examination. Jc Alfaro MD Head CT 08/06/17 0500 Signed Impressions: Service Date/Time: Sunday, August 06, 2017 07:47 - CONCLUSION: 1. There are acute blood products layering along the sulci in the medial right frontal and parietal lobes in the high convexity. Also, a small amount of blood products are present at the anterior right sylvian fissure and anterior right temporal lobe. No midline shift or herniation is present. 2. Chronic findings include generalized atrophy and mild chronic periventricular white matter change. Alvin Parker MD Shoulder X-Ray 08/06/17 0000 Signed Impressions: Service Date/Time: Sunday, August 06, 2017 07:58 - CONCLUSION: 1. No acute left shoulder abnormality is identified. 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 2. Mineralization in the region of the distal rotator cuff tendon suggests calcific tendinosis. Alvin Parker MD Objective Remarks GENERAL: This is a well-nourished, well-developed patient, in no apparent distress. CARDIOVASCULAR:tachycardic. RESPIRATORY: Clear to auscultation. Breath sounds equal bilaterally. No wheezes , rales, or rhonchi. GASTROINTESTINAL: Abdomen soft, non-tender, nondistended. Normal, active bowel sounds MUSCULOSKELETAL: Extremities without clubbing, cyanosis, or edema. NEURO: Alert & Oriented x4 to person, place, time, situation. Moves all ext x4 Medications and IVs Inpatient Medications Acetaminophen (Tylenol) 650 mg Q6H PRN PO PAIN 1-10 AND/OR FEVER >101F; Start 08/06/17 at 05:30 Albuterol Sulfate (Albuterol Neb) 2.5 mg Q2HR NEB PRN INH SOB/WHEEZING; Start 08/06/17 at 05:30 Bisacodyl (Dulcolax Supp) 10 mg DAILY PRN RECTAL SEVERE CONSITIPATION; Start at 05:30 Chlorhexidine Gluconate (Chlorhexidine 2% Cloth) 3 pack UNSCH PRN TOP HYGIENIC CARE; Start 08/06/17 at 05:30 Lactulose (Lactulose Liq) 30 ml DAILY PRN PO SEVERE CONSITIPATION; Start at 05:30 Lorazepam (Ativan Inj) 0.5 mg Q4H PRN IV PUSH agitation Last administered on 08/06/17at 21:32; Start 08/06/17 at 14:45 Magnesium Hydroxide (Milk Of Magnesia Liq) 30 ml Q12H PRN PO Mild constipation ; Start 08/06/17 at 05:30 Magnesium Oxide (Mag-Ox) 800 mg UNSCH PRN PO For Magnesium 1.2 - 1.6 mg/dL; Start 08/06/17 at 05:45 Magnesium Sulfate 2 gm/Sodium Chloride 100 ml @ 50 mls/hr UNSCH PRN IV For Magnesium 1.2 - 1.6 mg/dL; Start 08/06/17 at 05:45 Magnesium Sulfate 4 gm/Sodium Chloride 100 ml @ 50 mls/hr UNSCH PRN IV For Magnesium 0.9 - 1.1 mg/dL; Start 08/06/17 at 05:45 Miscellaneous Information ([facility] [place] [facility] Nursing Information) 1 Q361D XX Last administered on 08/06/17at 07:30; Start 08/06/17 at 05:30 Multivitamins 10 ml/Thiamine HCl 100 mg/Folic Acid 1 mg/Dextrose/ Sodium Chloride 511.2 ml @ 125 mls/hr Q24H IV Last administered on 08/07/17at 16:33; Start 08/06/17 at 16:00 Ondansetron HCl (Zofran Inj) 4 mg Q6H PRN IV PUSH NAUSEA OR VOMITING; Start 08/06/17 at 05:30 Pantoprazole Sodium (Protonix) 40 mg DAILY PO Last administered on 08/08/17at 08: 59; Start 08/06/17 at 09:00 Potassium Phosphate (K-Phos) 2,000 mg UNSCH PRN PO/TUBE SEE LABEL COMMENTS; Start 08/06/17 at 05:45 Potassium Phosphate 30 mmol/ Sodium Chloride 260 ml @ 42 mls/hr UNSCH PRN IV SEE LABEL COMMENTS; Start 08/06/17 at 05:45 Potassium Bicarb/ Potassium Chloride (K-Lyte Cl Eff) 50 meq UNSCH PRN PO For Potassium 3.3 - 3.5 mEq/L; Start 08/06/17 at 05:45 Potassium Chloride 100 ml @ 50 mls/hr Q2H PRN IV For Potassium 3.3 - 3.5 mEq/L ; Start 08/06/17 at 05:45 Senna/Docusate Sodium (Julita-Colace) 1 tab BID PO Last administered on 08/08/17at 08:59; Start 08/06/17 at 09:00 Sennosides (Senokot) 17.2 mg Q12H PRN PO Moderate constipation; Start 08/06/17 at 05:30 Sodium Chloride (NS Flush) 2 ml BID IV FLUSH Last administered on 08/08/17at 09: 00; Start 08/06/17 at 09:00 Sodium Phosphate 30 mmol/Sodium Chloride 250 ml @ 42 mls/hr UNSCH PRN IV For Phosphorus < 2.5 mg/dL; Start 08/06/17 at 05:45 A/P Problem List: (1) Fall ICD Code: W19.XXXA - Unspecified fall, initial encounter (2) Intraparenchymal hemorrhage of brain ICD Code: I61.9 - Nontraumatic intracerebral hemorrhage, unspecified (3) Eyebrow laceration ICD Code: S01.119A - Laceration without foreign body of unspecified eyelid and periocular area, initial encounter Assessment and Plan Fall Parietal intraparenchymal hemorrhage Alcohol abuse continue with neuro check and PT. neurosurgery following. Laceration R eyebrow -status post suture repair 08/05 at outside hospital. Sutures should be removed in 3-5 days per Low-dose Ativan as needed for alcohol withdrawal MSK: L shoulder deformity May be chronic but patient unsure. No imaging of shoulder appears hospital. x- ray left shoulder shows no acute fracture. Tachycardia no chest pain or sob; will check EKG. Discharge Planning dc planning within the next 24 hrs if stable. case management for [facility]. Problem Qualifiers (1) Eyebrow laceration: Neela Boateng MD August 08, 2017 09:48
--- NOTE | 2017-08-08 10:47 | EKG ---
Date Performed: 08/08/2017 Time Performed: 10:06:25 PTAGE: 87 years EKG: ATRIAL FLUTTER/TACHYCARDIA WITH RAPID VENTRICULAR RESPONSE LOW QRS VOLTAGE IN PRECORDIAL LE ADS POSSIBLE ANTERIOR MYOCARDIAL INFARCTION , PROBABLY OLD POSSIBLE INFERIOR MYOCARDIAL INFARCTION , PROBABLY OLD ABNORMAL RHYTHM ECG PREVIOUS TRACING : 08/06/2017 10.12 DOCTOR: Jc Diaz Interpretating Date/Time 08/08/2017 10:45:35
[2017-08-08 12:45] VITALS: BP 172/76; PULSE 133; RESP 18; TEMP 98; O2SAT 98
[2017-08-08] MEDS: METOPROLOL TARTRATE 25 MG TAB PO SCH ×2 (14:45→20:57)
[2017-08-08 16:00] VITALS: BP 151/85; PULSE 118; RESP 18; TEMP 98.8; O2SAT 98
[2017-08-08] MEDS: MULTIVITAMIN INJ 10 ML, THIAMINE INJ 100 MG, FOLIC ACID INJ 1 MG in DEXT 5%-NACL 0.9% 5... IV SCH (16:00)
[2017-08-08 20:00] VITALS: BP 164/91; PULSE 120; RESP 18; TEMP 98.9; O2SAT 98
[2017-08-08] MEDS: CHLORHEXIDINE GLUCONATE 2 % 1 PACK (2 CLOTHS) TOP SCH (23:55)
[2017-08-09] VITALS (7 sets, daily range): BP systolic 132–164; BP diastolic 61–97; PULSE 80–120; RESP 16–20; TEMP 97.6–98.9; O2SAT 96–99
[2017-08-09] MEDS: LORazepam 2 MG/ML VIAL IV PUSH PRN ×2 (00:50→21:23)
[2017-08-09] MEDS: CHLORHEXIDINE GLUCONATE 2 % 1 PACK (2 CLOTHS) TOP SCH (04:00)
--- NOTE | 2017-08-09 09:13 | HHI.PR ---
Subjective Remarks in no acute distress. denies pain, headache, chest pain or sob. Objective Vitals Vital Signs Date Time Temp Pulse Resp B/P (MAP) Pulse Ox O2 Delivery O2 Flow Rate FiO2 08/09/17 08:34 97.7 106 20 152/97 (115) 99 08/09/17 05:17 98.6 80 16 132/71 (91) 98 08/09/17 02:33 98 Room Air 08/09/17 00:00 98.9 120 18 164/91 (115) 98 08/08/17 20:00 98.9 120 18 164/91 (115) 98 08/08/17 16:00 98.8 118 18 151/85 (107) 98 08/08/17 12:45 98.0 133 18 172/76 (108) 98 I/O 08/08/17 08/08/17 08/08/17 08/09/17 08/09/17 08/09/17 07:00 15:00 23:00 07:00 15:00 23:00 Intake Total 480 ml Balance 480 ml Intake Oral 480 ml # Voids 2 3 # Bowel Movements 1 Result Diagram: 08/08/17 0802 08/08/17 0802 Imaging Last Impressions Chest X-Ray 08/08/17 0600 Signed Impressions: Service Date/Time: Tuesday, August 08, 2017 05:15 - CONCLUSION: Normal examination. Jc Alfaro MD Head CT 08/06/17 0500 Signed Impressions: Service Date/Time: Sunday, August 06, 2017 07:47 - CONCLUSION: 1. There are acute blood products layering along the sulci in the medial right frontal and parietal lobes in the high convexity. Also, a small amount of blood products are present at the anterior right sylvian fissure and anterior right temporal lobe. No midline shift or herniation is present. 2. Chronic findings include generalized atrophy and mild chronic periventricular white matter change. Alvin Parker MD Shoulder X-Ray 08/06/17 0000 Signed Impressions: Service Date/Time: Sunday, August 06, 2017 07:58 - CONCLUSION: 1. No acute left shoulder abnormality is identified. 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 2. Mineralization in the region of the distal rotator cuff tendon suggests calcific tendinosis. Alvin Parker MD Objective Remarks GENERAL: This is a well-nourished, well-developed patient, in no apparent distress. CARDIOVASCULAR:tachycardic. RESPIRATORY: Clear to auscultation. Breath sounds equal bilaterally. No wheezes , rales, or rhonchi. GASTROINTESTINAL: Abdomen soft, non-tender, nondistended. Normal, active bowel sounds MUSCULOSKELETAL: Extremities without clubbing, cyanosis, or edema. NEURO: Alert & Oriented x4 to person, place, time, situation. Moves all ext x4 Medications and IVs Inpatient Medications Acetaminophen (Tylenol) 650 mg Q6H PRN PO PAIN 1-10 AND/OR FEVER >101F Last administered on 08/08/17at 20:59; Start 08/06/17 at 05:30 Albuterol Sulfate (Albuterol Neb) 2.5 mg Q2HR NEB PRN INH SOB/WHEEZING; Start 08/06/17 at 05:30 Bisacodyl (Dulcolax Supp) 10 mg DAILY PRN RECTAL SEVERE CONSITIPATION; Start at 05:30 Chlorhexidine Gluconate (Chlorhexidine 2% Cloth) 3 pack UNSCH PRN TOP HYGIENIC CARE; Start 08/06/17 at 05:30 Lactulose (Lactulose Liq) 30 ml DAILY PRN PO SEVERE CONSITIPATION; Start at 05:30 Lorazepam (Ativan Inj) 0.5 mg Q4H PRN IV PUSH agitation Last administered on 08/09/17at 00:50; Start 08/06/17 at 14:45 Magnesium Hydroxide (Milk Of Magnesia Liq) 30 ml Q12H PRN PO Mild constipation ; Start 08/06/17 at 05:30 Magnesium Oxide (Mag-Ox) 800 mg UNSCH PRN PO For Magnesium 1.2 - 1.6 mg/dL; Start 08/06/17 at 05:45; Stop 08/08/17 at 11:35; Status DC Magnesium Sulfate 2 gm/Sodium Chloride 100 ml @ 50 mls/hr UNSCH PRN IV For Magnesium 1.2 - 1.6 mg/dL; Start 08/06/17 at 05:45; Stop 08/08/17 at 11:35; Status DC Magnesium Sulfate 4 gm/Sodium Chloride 100 ml @ 50 mls/hr UNSCH PRN IV For Magnesium 0.9 - 1.1 mg/dL; Start 08/06/17 at 05:45; Stop 08/08/17 at 11:35; Status DC Metoprolol Tartrate (Lopressor) 25 mg Q12HR PO Last administered on 08/08/17at 20 :57; Start 08/08/17 at 14:45 Miscellaneous Information ([facility] [place] Nursing Information) 1 Q361D XX Last administered on 08/06/17at 07:30; Start 08/06/17 at 05:30 Multivitamins 10 ml/Thiamine HCl 100 mg/Folic Acid 1 mg/Dextrose/ Sodium Chloride 511.2 ml @ 125 mls/hr Q24H IV Last administered on 08/07/17at 16:33; Start 08/06/17 at 16:00 Ondansetron HCl (Zofran Inj) 4 mg Q6H PRN IV PUSH NAUSEA OR VOMITING; Start 08/06/17 at 05:30 Pantoprazole Sodium (Protonix) 40 mg DAILY PO Last administered on 08/08/17at 08: 59; Start 08/06/17 at 09:00 Potassium Phosphate (K-Phos) 2,000 mg UNSCH PRN PO/TUBE SEE LABEL COMMENTS; Start 08/06/17 at 05:45; Stop 08/08/17 at 11:35; Status DC Potassium Phosphate 30 mmol/ Sodium Chloride 260 ml @ 42 mls/hr UNSCH PRN IV SEE LABEL COMMENTS; Start 08/06/17 at 05:45; Stop 08/08/17 at 11:35; Status DC Potassium Bicarb/ Potassium Chloride (K-Lyte Cl Eff) 50 meq UNSCH PRN PO For Potassium 3.3 - 3.5 mEq/L; Start 08/06/17 at 05:45; Stop 08/08/17 at 11:35; Status DC Potassium Chloride 100 ml @ 50 mls/hr Q2H PRN IV For Potassium 3.3 - 3.5 mEq/L ; Start 08/06/17 at 05:45; Stop 08/08/17 at 11:35; Status DC Senna/Docusate Sodium (Julita-Colace) 1 tab BID PO Last administered on 08/08/17at 20:57; Start 08/06/17 at 09:00 Sennosides (Senokot) 17.2 mg Q12H PRN PO Moderate constipation; Start 08/06/17 at 05:30 Sodium Chloride (NS Flush) 2 ml BID IV FLUSH Last administered on 08/08/17at 20: 59; Start 08/06/17 at 09:00 Sodium Phosphate 30 mmol/Sodium Chloride 250 ml @ 42 mls/hr UNSCH PRN IV For Phosphorus < 2.5 mg/dL; Start 08/06/17 at 05:45; Stop 08/08/17 at 11:35; Status DC A/P Problem List: (1) Fall ICD Code: W19.XXXA - Unspecified fall, initial encounter (2) Intraparenchymal hemorrhage of brain ICD Code: I61.9 - Nontraumatic intracerebral hemorrhage, unspecified (3) Eyebrow laceration ICD Code: S01.119A - Laceration without foreign body of unspecified eyelid and periocular area, initial encounter Assessment and Plan Fall Parietal intraparenchymal hemorrhage Alcohol abuse continue with neuro check and PT. neurosurgery following. Laceration R eyebrow -status post suture repair 08/05 at outside hospital. Sutures should be removed in 3-5 days per Low-dose Ativan as needed for alcohol withdrawal MSK: L shoulder deformity May be chronic but patient unsure. No imaging of shoulder appears hospital. x- ray left shoulder shows no acute fracture. Tachycardia- questionable a-flutter with RVR- better. no chest pain or sob- started on metoprolol- echo pending. Discharge Planning dc planning within the next 24 hrs if stable-pending echo and neurosurgery f/u. case management for [facility]. Problem Qualifiers (1) Eyebrow laceration: Neela Boateng MD August 09, 2017 09:13
--- NOTE | 2017-08-09 10:07 | HHI.NSPN ---
(Chuck Giordano) History Chief Complaint: No complains. S/p fall with cerebral contusions. (Chuck Giordano) Interval History 87-year-old female who was transferred from [facility] for cerebral contusions after a trip and fall at home. No loss of consciousness noted and she denies feeling lightheaded or dizzy either prior to or after the fall. She relates no complaints and denies headache, nausea vomiting, neck or back pain, any numbness or paresthesias in the upper lower extremities. Daughter is here with her and relates that she has a history of dementia and is otherwise healthy and other than some vitamins does not take any medication. She also has glaucoma with poor vision. The fall occurred yesterday and she was transferred to [facility] this morning. CT scan of the head was repeated and reveals right posterior frontoparietal parasagittal contusions along with the right temporal polar area contusion near the sylvian fissure laterally. There is generalized cerebral atrophy with no mass-effect or midline shift noted. 08/07/17: Pt awake and alert. No headache, nausea, or vomiting. Follows commands well. speech clear and appropriate. 08/09/17 Pt awake and alert. Sitting up in chair. Denies headache, nausea or vomiting. Follows commands. Pt states she is going home today. (Chuck Giordano) Review of Systems General: Negative for: fever, chills, insomnia Respiratory: Negative for: shortness of breath, cough, sputum Cardiovascular: Negative for: chest pain Gastrointestinal: Negative for: nausea, vomitting, diarrhea, constipation ( Chuck Giordano) Exam Results Vital Signs Date Time Temp Pulse Resp B/P (MAP) Pulse Ox O2 Delivery O2 Flow Rate FiO2 08/09/17 08:34 97.7 106 20 152/97 (115) 99 08/09/17 02:33 Room Air 08/08/17 08:00 3.00 (Chuck Giordano) Physical Examination General: Pt awakens to voice. Eyes: Pupils equal. Sclera anicteric. Resp: CTA bilaterally. Heart: Mild tachycardia, no murmurs. Abd: Soft positive bs. Skin: She has ecchymosis right chin and right periorbital area with a sutured laceration above right eyebrow. Muscle: Moves all 4 extremities with good strength. Neuro: Pt awake and alert. Pupils equal. Face symmetric. Follows commands well. (Chuck Giordano) Lab, Micro, Other Results Last Impressions Chest X-Ray 08/08/17 0600 Signed Impressions: Service Date/Time: Tuesday, August 08, 2017 05:15 - CONCLUSION: Normal examination. Jc Alfaro MD Head CT 08/06/17 0500 Signed Impressions: Service Date/Time: Sunday, August 06, 2017 07:47 - CONCLUSION: 1. There are acute blood products layering along the sulci in the medial right frontal and parietal lobes in the high convexity. Also, a small amount of blood products are present at the anterior right sylvian fissure and anterior right temporal lobe. No midline shift or herniation is present. 2. Chronic findings include generalized atrophy and mild chronic periventricular white matter change. Alvin Parker MD Shoulder X-Ray 08/06/17 0000 Signed Impressions: Service Date/Time: Sunday, August 06, 2017 07:58 - CONCLUSION: 1. No acute left shoulder abnormality is identified. 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 2. Mineralization in the region of the distal rotator cuff tendon suggests calcific tendinosis. Alvin Parker MD (Chuck Giordano) Medical Decision Making Impression and Plan A: 87-year-old female with a medial right posterior frontal parietal lobe contusions along with the temporal polar area contusion which is stable on follow-up imaging studies consistent with a traumatic injury after the fall. She has a history of dementia which is at baseline according to her daughter. P: Continue with neuro checks Increase activity with PT Continue with SCDs. Possibly d/c home today. Follow up with pcp. (Chuck Giordano) Attending Statement The exam, history, and the medical decision-making described in the above note were completed with the assistance of the mid-level provider. I reviewed and agree with the findings presented. I attest that I had a [id number] encounter with the patient on the same day, and personally performed and documented my assessment and findings in the medical record. (William Ambriz MD) Chuck Giordano August 09, 2017 10:07 William Ambriz MD August 09, 2017 16:58
[2017-08-09] MEDS: DOCUSATE SODIUM 50 MG/SENNA 8.6 MG TAB PO SCH ×2 (11:09→21:22)
[2017-08-09] MEDS: METOPROLOL TARTRATE 25 MG TAB PO SCH ×2 (11:09→21:22)
[2017-08-09] MEDS: PANTOPRAZOLE SOD 40 MG DELAYED RELEASE TAB PO SCH (11:09)
[2017-08-09] MEDS: SODIUM CHLORIDE 0.9% FLUSH 10 ML FLUSH IV FLUSH SCH ×2 (11:10→21:23)
[2017-08-09] MEDS: MULTIVITAMIN INJ 10 ML, THIAMINE INJ 100 MG, FOLIC ACID INJ 1 MG in DEXT 5%-NACL 0.9% 5... IV SCH (17:22)
--- NOTE | 2017-08-09 19:16 | ECHRPT ---
Indication: ATRIAL FIB/FLUTTER CONCLUSIONS Normal left ventricular size. Wall thickness is measured at the upper limits of normal. The left ventricular systolic function is normal with an estimated ejection fraction in the range of 55-60%. The left atrial size is ooir-kq-ijzvnfkdme dilated. The right atrial size is nkxh-ux-vacgjlwlss dilated. Mild mitral annular calcification. Kyuv-tz-irydysfz mitral valve regurgitation. Aortic valve sclerosis is present. There is mild to moderate tricuspid valve regurgitation. The estimated pulmonary arterial pressure is 47 mmHg. BP: / HR: Rhythm: Sinus MEASUREMENTS (Male / Female) Normal Values Technical Quality:Fair 2D ECHO LV Diastolic Diameter PLAX 3.2 cm 4.2 - 5.9 / 3.9 - 5.3 cm LV Systolic Diameter PLAX 2.4 cm IVS Diastolic Thickness 1.1 cm 0.6 - 1.0 / 0.6 - 0.9 cm LVPW Diastolic Thickness 1.1 cm 0.6 - 1.0 / 0.6 - 0.9 cm LV Relative Wall Thickness 0.7 RV Internal Dim ED PLAX 2.6 cm LVOT Diameter 1.7 cm Aortic Root Diameter 2.9 cm LA Systolic Diameter LX 2.8 cm 3.0 - 4.0 / 2.7 - 3.8 cm M-MODE AV Cusp Separation MM 1.8 cm DOPPLER AV Peak Velocity 120.5 cm/s AV Peak Gradient 5.8 mmHg AV Mean Gradient 3.0 mmHg AV Velocity Time Integral 22.3 cm LVOT Peak Velocity 79.0 cm/s LVOT Peak Gradient 2.5 mmHg LVOT Velocity Time Integral 13.7 cm AV Area Cont Eq vti 1.4 cm AV Area Cont Eq pk 1.5 cm Mitral E Point Velocity 126.0 cm/s LV E' Lateral Velocity 3.0 cm/s Mitral E to LV E' Lateral Ratio 41.7 LV E' Septal Velocity 16.7 cm/s Mitral E to LV E' Septal Ratio 7.5 TR Peak Velocity 304.0 cm/s TR Peak Gradient 37.0 mmHg Right Atrial Pressure 10.0 mmHg Pulmonary Artery Systolic Pressu 47.0 mmHg Right Ventricular Systolic Press 47.0 mmHg PV Peak Velocity 58.7 cm/s PV Peak Gradient 1.4 mmHg FINDINGS LEFT VENTRICLE Normal left ventricular size. Wall thickness is measured at the upper limits of normal. The left ventricular systolic function is normal with an estimated ejection fraction in the range of 55-60%. RIGHT VENTRICLE Normal right ventricular size and systolic function. LEFT ATRIUM The left atrial size is tigf-kr-naqyegrzrt dilated. RIGHT ATRIUM The right atrial size is myfw-ci-giqpvwuhbm dilated. ATRIAL SEPTUM No atrial level shunt is demonstrated by color flow Doppler interrogation. AORTA The aortic root and proximal ascending aorta are normal in size on limited imaging. MITRAL VALVE Mild mitral annular calcification. Tuta-sh-lcusmxrg mitral valve regurgitation. AORTIC VALVE Aortic valve sclerosis is present. TRICUSPID VALVE There is mild to moderate tricuspid valve regurgitation. The estimated pulmonary arterial pressure is 47 mmHg. PULMONARY VALVE No pulmonary valve regurgitation or stenosis. VESSELS The inferior vena cava is normal in size. PERICARDIUM No pericardial effusion. Kip Nicole MD, FACC (Electronically Signed) Final Date:09 Aug 2017 19:16
[2017-08-10] VITALS: BP 155/79; PULSE 108; RESP 18; TEMP 97.8; O2SAT 97
[2017-08-10] MEDS: CHLORHEXIDINE GLUCONATE 2 % 1 PACK (2 CLOTHS) TOP SCH (01:33)
[2017-08-10 07:37] VITALS: BP 151/79; PULSE 107; RESP 18; TEMP 97.7; O2SAT 95
[2017-08-10 08:00] VITALS: PULSE 106
--- NOTE | 2017-08-10 08:14 | HHI.PR ---
Subjective Remarks in no acute distress. resting comfortably. denies chest pain or sob. no new complaints. Objective Vitals Vital Signs Date Time Temp Pulse Resp B/P (MAP) Pulse Ox O2 Delivery O2 Flow Rate FiO2 08/10/17 07:37 97.7 107 18 151/79 (103) 95 08/10/17 00:00 97.8 108 18 155/79 (104) 97 08/09/17 20:09 102 08/09/17 20:00 97.6 113 16 152/72 (98) 96 08/09/17 17:09 98.7 107 20 132/61 (84) 08/09/17 12:20 98.1 111 20 141/64 (89) 08/09/17 08:34 97.7 106 20 152/97 (115) 99 I/O 08/09/17 08/09/17 08/09/17 08/10/17 08/10/17 08/10/17 07:00 15:00 23:00 07:00 15:00 23:00 Intake Total 720 ml Balance 720 ml Intake Oral 720 ml # Voids 3 # Bowel Movements 1 Result Diagram: 08/08/17 0802 08/08/17 0802 Imaging Last Impressions Chest X-Ray 08/08/17 0600 Signed Impressions: Service Date/Time: Tuesday, August 08, 2017 05:15 - CONCLUSION: Normal examination. Jc Alfaro MD Head CT 08/06/17 0500 Signed Impressions: Service Date/Time: Sunday, August 06, 2017 07:47 - CONCLUSION: 1. There are acute blood products layering along the sulci in the medial right frontal and parietal lobes in the high convexity. Also, a small amount of blood products are present at the anterior right sylvian fissure and anterior right temporal lobe. No midline shift or herniation is present. 2. Chronic findings include generalized atrophy and mild chronic periventricular white matter change. Alvin Parker MD Shoulder X-Ray 08/06/17 0000 Signed Impressions: Service Date/Time: Sunday, August 06, 2017 07:58 - CONCLUSION: 1. No acute left shoulder abnormality is identified. 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 2. Mineralization in the region of the distal rotator cuff tendon suggests calcific tendinosis. Alvin Parker MD Objective Remarks GENERAL: This is a well-nourished, well-developed patient, in no apparent distress. CARDIOVASCULAR:tachycardic. RESPIRATORY: Clear to auscultation. Breath sounds equal bilaterally. No wheezes , rales, or rhonchi. GASTROINTESTINAL: Abdomen soft, non-tender, nondistended. Normal, active bowel sounds MUSCULOSKELETAL: Extremities without clubbing, cyanosis, or edema. NEURO: Alert & Oriented x4 to person, place, time, situation. Moves all ext x4 Procedures none Medications and IVs Inpatient Medications Acetaminophen (Tylenol) 650 mg Q6H PRN PO PAIN 1-10 AND/OR FEVER >101F Last administered on 08/08/17at 20:59; Start 08/06/17 at 05:30 Albuterol Sulfate (Albuterol Neb) 2.5 mg Q2HR NEB PRN INH SOB/WHEEZING; Start 08/06/17 at 05:30 Bisacodyl (Dulcolax Supp) 10 mg DAILY PRN RECTAL SEVERE CONSITIPATION; Start at 05:30 Chlorhexidine Gluconate (Chlorhexidine 2% Cloth) 3 pack UNSCH PRN TOP HYGIENIC CARE; Start 08/06/17 at 05:30 Lactulose (Lactulose Liq) 30 ml DAILY PRN PO SEVERE CONSITIPATION; Start at 05:30 Lorazepam (Ativan Inj) 0.5 mg Q4H PRN IV PUSH agitation Last administered on 08/09/17at 00:50; Start 08/06/17 at 14:45 Magnesium Hydroxide (Milk Of Magnesia Liq) 30 ml Q12H PRN PO Mild constipation ; Start 08/06/17 at 05:30 Magnesium Oxide (Mag-Ox) 800 mg UNSCH PRN PO For Magnesium 1.2 - 1.6 mg/dL; Start 08/06/17 at 05:45; Stop 08/08/17 at 11:35; Status DC Magnesium Sulfate 2 gm/Sodium Chloride 100 ml @ 50 mls/hr UNSCH PRN IV For Magnesium 1.2 - 1.6 mg/dL; Start 08/06/17 at 05:45; Stop 08/08/17 at 11:35; Status DC Magnesium Sulfate 4 gm/Sodium Chloride 100 ml @ 50 mls/hr UNSCH PRN IV For Magnesium 0.9 - 1.1 mg/dL; Start 08/06/17 at 05:45; Stop 08/08/17 at 11:35; Status DC Metoprolol Tartrate (Lopressor) 25 mg Q12HR PO Last administered on 08/09/17at 21 :22; Start 08/08/17 at 14:45 Miscellaneous Information ([facility] [facility] [place] 1 [id number] Last administered on 08/06/17at 07:30; Start 08/06/17 at 05:30 Multivitamins 10 ml/Thiamine HCl 100 mg/Folic Acid 1 mg/Dextrose/ Sodium Chloride 511.2 ml @ 125 mls/hr Q24H IV Last administered on 08/09/17 17:22; Start 08/06/17 at 16:00 Ondansetron HCl (Zofran Inj) 4 mg Q6H PRN IV PUSH NAUSEA OR VOMITING; Start 08/06/17 at 05:30 Pantoprazole Sodium (Protonix) 40 mg DAILY PO Last administered on 08/09/17at 11: 09; Start 08/06/17 at 09:00 Potassium Phosphate (K-Phos) 2,000 mg UNSCH PRN PO/TUBE SEE LABEL COMMENTS; Start 08/06/17 at 05:45; Stop 08/08/17 at 11:35; Status DC Potassium Phosphate 30 mmol/ Sodium Chloride 260 ml @ 42 mls/hr UNSCH PRN IV SEE LABEL COMMENTS; Start 08/06/17 at 05:45; Stop 08/08/17 at 11:35; Status DC Potassium Bicarb/ Potassium Chloride (K-Lyte Cl Eff) 50 meq UNSCH PRN PO For Potassium 3.3 - 3.5 mEq/L; Start 08/06/17 at 05:45; Stop 08/08/17 at 11:35; Status DC Potassium Chloride 100 ml @ 50 mls/hr Q2H PRN IV For Potassium 3.3 - 3.5 mEq/L ; Start 08/06/17 at 05:45; Stop 08/08/17 at 11:35; Status DC Senna/Docusate Sodium (Julita-Colace) 1 tab BID PO Last administered on 08/09/17at 21:22; Start 08/06/17 at 09:00 Sennosides (Senokot) 17.2 mg Q12H PRN PO Moderate constipation; Start 08/06/17 at 05:30 Sodium Chloride (NS Flush) 2 ml BID IV FLUSH Last administered on 08/09/17at 21: 23; Start 08/06/17 at 09:00 Sodium Phosphate 30 mmol/Sodium Chloride 250 ml @ 42 mls/hr UNSCH PRN IV For Phosphorus < 2.5 mg/dL; Start 08/06/17 at 05:45; Stop 08/08/17 at 11:35; Status DC A/P Problem List: (1) Fall ICD Code: W19.XXXA - Unspecified fall, initial encounter (2) Intraparenchymal hemorrhage of brain ICD Code: I61.9 - Nontraumatic intracerebral hemorrhage, unspecified (3) Eyebrow laceration ICD Code: S01.119A - Laceration without foreign body of unspecified eyelid and periocular area, initial encounter Assessment and Plan Fall Parietal intraparenchymal hemorrhage Alcohol abuse continue with neuro check and PT. neurosurgery following. Laceration R eyebrow -status post suture repair 08/05 at outside hospital. Sutures should be removed in 3-5 days per Low-dose Ativan as needed for alcohol withdrawal MSK: L shoulder deformity May be chronic but patient unsure. No imaging of shoulder appears hospital. x- ray left shoulder shows no acute fracture. Tachycardia- questionable a-flutter with RVR- overall better. no chest pain or sob- started on metoprolol- echo with EF 55%. Discharge Planning dc home this afternoon if HR stable. case management for [facility]. Problem Qualifiers (1) Eyebrow laceration: Neela Boateng MD August 10, 2017 08:13
[2017-08-10] MEDS ORDERED: METOPROLOL TARTRATE 25 MG TAB PO ONE (08:15)
--- NOTE | 2017-08-10 08:15 | HHI.DS ---
Discharge Summary Admission Date August 06, 2017 at 02:20 Discharge Date: August 10, 2017 Admitting Diagnosis intraparenchymal hemorrhage of the brain. (1) Fall ICD Code: W19.XXXA - Unspecified fall, initial encounter Diagnosis: Principal (2) Intraparenchymal hemorrhage of brain ICD Code: I61.9 - Nontraumatic intracerebral hemorrhage, unspecified Diagnosis: Principal (3) Eyebrow laceration ICD Code: S01.119A - Laceration without foreign body of unspecified eyelid and periocular area, initial encounter Diagnosis: Secondary Procedures none Brief History - From Admission 87-year-old female who states that she has no significant past medical history was transferred from [facility] due to intracerebral hemorrhage. She states that she slipped and landed with her face on the floor. She denies loss of consciousness. She denies reported seizure activity. She denies headache, nausea, vomiting. She is not on any anticoagulants or antiplatelets. Denies h/o HTN. She has right periorbital ecchymosis and a laceration above her right eye and has undergone suture repair at [facility]. CT brain at [facility] 08/05 17: 56 demonstrates intracerebral hemorrhage at the high right parietal region, near midline. There is no intraventricular hemorrhage. She had a CT C-spine that was negative. 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 Dr. Manning discussed with Dr. Ambriz who recommended repeat CT brain this morning. CBC/BMP: 08/08/17 0802 08/08/17 0802 Significant Findings Laboratory Tests Test 08/08/17 08:02 08/09/17 11:20 Red Blood Count 3.05 MIL/MM3 (4.00-5.30) Hemoglobin 10.1 GM/DL (11.6-15.3) Hematocrit 30.0 % (35.0-46.0) Monocytes (%) (Auto) 10.2 % (0.0-8.0) Eosinophils (%) (Auto) 7.2 % (0.0-4.0) Lymphocytes # (Auto) 0.8 TH/MM3 (1.0-4.8) Blood Urea Nitrogen 20 MG/DL (7-18) Creatinine 1.12 MG/DL (0.50-1.00) Total Protein 5.9 GM/DL (6.4-8.2) Albumin 2.5 GM/DL (3.4-5.0) Chloride Level 113 MEQ/L (98-107) Estimat Glomerular Filtration Rate 46 ML/MIN (>89) Thyroid Stimulating Hormone 3rd Gen 5.530 uIU/ML (0.358-3.740) Imaging Last Impressions Chest X-Ray 08/08/17 0600 Signed Impressions: Service Date/Time: Tuesday, August 08, 2017 05:15 - CONCLUSION: Normal examination. Jc Alfaro MD Head CT 08/06/17 0500 Signed Impressions: Service Date/Time: Sunday, August 06, 2017 07:47 - CONCLUSION: 1. There are acute blood products layering along the sulci in the medial right frontal and parietal lobes in the high convexity. Also, a small amount of blood products are present at the anterior right sylvian fissure and anterior right temporal lobe. No midline shift or herniation is present. 2. Chronic findings include generalized atrophy and mild chronic periventricular white matter change. Alvin Parker MD Shoulder X-Ray 08/06/17 0000 Signed Impressions: Service Date/Time: Sunday, August 06, 2017 07:58 - CONCLUSION: 1. No acute left shoulder abnormality is identified. 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 2. Mineralization in the region of the distal rotator cuff tendon suggests calcific tendinosis. Alvin Parker MD PE at Discharge GENERAL: This is a well-nourished, well-developed patient, in no apparent distress. CARDIOVASCULAR:tachycardic. RESPIRATORY: Clear to auscultation. Breath sounds equal bilaterally. No wheezes , rales, or rhonchi. GASTROINTESTINAL: Abdomen soft, non-tender, nondistended. Normal, active bowel sounds MUSCULOSKELETAL: Extremities without clubbing, cyanosis, or edema. NEURO: Alert & Oriented x4 to person, place, time, situation. Moves all ext x4 Hospital Course Fall Parietal intraparenchymal hemorrhage Alcohol abuse continue with neuro check and PT. neurosurgery following. Laceration R eyebrow -status post suture repair 5/ at outside hospital. Sutures should be removed in 3-5 days per Low-dose Ativan as needed for alcohol withdrawal MSK: L shoulder deformity May be chronic but patient unsure. No imaging of shoulder appears hospital. x- ray left shoulder shows no acute fracture. Tachycardia- questionable a-flutter with RVR- overall better. no chest pain or sob- started on metoprolol- echo with EF 55%. Pt Condition on Discharge: Fair Discharge Disposition: Disch w/ Home Health Serv Discharge Time: <= 30 minutes Discharge Instructions DIET: Follow Instructions for: Heart Healthy Diet Activities you can perform: Regular-No Restrictions Neela Boateng MD August 10, 2017 08:15
[2017-08-10] MEDS: SODIUM CHLORIDE 0.9% FLUSH 10 ML FLUSH IV FLUSH SCH (09:00)
[2017-08-10] MEDS: DOCUSATE SODIUM 50 MG/SENNA 8.6 MG TAB PO SCH (09:00)
[2017-08-10] MEDS: METOPROLOL TARTRATE 25 MG TAB PO SCH (09:10)
[2017-08-10] MEDS: PANTOPRAZOLE SOD 40 MG DELAYED RELEASE TAB PO SCH (09:10)
[2017-08-10] MEDS ORDERED: METO25TA3 PO (11:30)
[2017-08-10] MEDS ORDERED: MULT1TAB46 PO (11:30)
[2017-08-10 11:37] VITALS: BP 157/79; PULSE 101; RESP 18; TEMP 97.5; O2SAT 97
[2017-08-10 11:47] VITALS: PULSE 68
[2017-08-10] MEDS: MULTIVITAMIN INJ 10 ML, THIAMINE INJ 100 MG, FOLIC ACID INJ 1 MG in DEXT 5%-NACL 0.9% 5... IV SCH (16:00)
== END 2017-08-10 17:00 | disposition home health service (06) | DRG 87 ==
LOC: N03A 02:20 → N05A 08-07 20:18
PROVIDERS: ADMIT Internal Medicine; ATTEND Internal Medicine
DX: S06.340A Traumatic hemorrhage of right cerebrum without loss of consciousness, initial encounter (principal); F03.90 Unspecified dementia, unspecified severity, without behavioral disturbance, psychotic disturbance, mood disturbance, and anxiety; S06.310A Contusion and laceration of right cerebrum without loss of consciousness, initial encounter; S01.111A Laceration without foreign body of right eyelid and periocular area, initial encounter; H40.9 Unspecified glaucoma; H54.7 Unspecified visual loss; R00.0 Tachycardia, unspecified; F10.10 Alcohol abuse, uncomplicated; M21.922 Unspecified acquired deformity of left upper arm; W01.0XXA Fall on same level from slipping, tripping and stumbling without subsequent striking against object, initial encounter; Y92.009 Unspecified place in unspecified non-institutional (private) residence as the place of occurrence of the external cause; Z87.891 Personal history of nicotine dependence
CPT/HCPCS: 70450; 71045; 73030; 80048; 80053; 83735; 84100; 84439; 84443; 85025; 85027; 85610; 87641; 93005; 93306; 94150; J2060; J3411; J7030; J7042